=== PATIENT | female | born 2000 | race Caucasian/White ===

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

== ENCOUNTER 2022-06-07 20:07 | Emergency (ER) | payer BC ==
[2022-06-07] VITALS (8 sets, daily range): BP systolic 111–137; BP diastolic 58–85
[~2022-06-07] VITALS: Ht 175.3 cm; Wt 99.4 kg
[~2022-06-07 20:07] MED LIST changes: +FLEXERIL PO
[2022-06-07 20:49] LABS: BASO% 0.4 % (0-3); EOS% 2.8 % (0-8); HEMATOCRIT 40.8 % (37.0-47.0); HEMOGLOBIN 13.2 g/dl (12.0-16.0); IMMATURE GRANULOCYTES 0.3 % (0.0-5.0); MEAN CELL VOLUME 89.1 fL CALC (80.0-100.0); MEAN CORPUSCULAR HGB 28.8 pG CALC (26.0-32.0); MEAN CORPUSCULAR HGB CONC 32.4 g/dL CAL (32.0-36.0); MONO% 4.6 % (2-13); NEUT# 8.78 thou/uL (2.00-7.15); NEUT% 71.9 % (42-76); RED BLOOD COUNT 4.58 mill/uL (4.20-5.60); RED CELL DISTRI WIDTH 13.3 % (11.5-15.5)
[2022-06-07 21:03] LABS: ALBUMIN 4.3 g/dL (3.2-5.0); ALKALINE PHOSPHATASE 57 u/l (38-126); ANION GAP 12 (6-22 (CALC)); BUN 13 mg/dL (7-17); BUN/CREATININE RATIO 13 (12-20 (CALC)); CARBON DIOXIDE 24 mmol/l (22-30); CHLORIDE 106 mmol/l (95-108); GFR FOR AFR.AMER. > 60 ML/MIN (>=60 (CALC)); GFR OTHER RACES > 60 ML/MIN (>=60 (CALC)); LIPASE 64 u/l (23-300); POTASSIUM 3.8 mmol/l (3.5-5.1); SGOT/AST 30 u/l (14-36); SODIUM 139 mmol/l (137-146); TOTAL PROTEIN 7.5 g/dL (6.3-8.2)
[2022-06-07 21:06] LABS: BILIRUBIN, TOTAL 0.1 mg/dL (0.02-1.3)
[2022-06-07] MEDS ORDERED: TRAMADOL HCL50 MG PO (22:14)
== END 2022-06-07 22:23 | disposition home or self-care (01) | DRG 779 ==
LOC: ED 20:07
PROVIDERS: Family Medicine
DX: O03.9 Complete or unspecified spontaneous abortion without complication (principal)

== ENCOUNTER 2022-06-10 09:24 | Emergency (ER) | payer BC ==
[~2022-06-10] VITALS: Ht 175.3 cm; Wt 97.5 kg
[~2022-06-10 09:24] MED LIST changes: +TRAMADOL HCL50 MG PO
[2022-06-10 09:33] VITALS: BP 130/76
[2022-06-10 09:48] LABS: BASO% 0.4 % (0-3); EOS% 3.8 % (0-8); HEMATOCRIT 37.1 % (37.0-47.0); HEMOGLOBIN 11.6 g/dl (12.0-16.0); IMMATURE GRANULOCYTES 0.5 % (0.0-5.0); LYMPH% 27.1 % (15-41); MEAN CORPUSCULAR HGB 27.8 pG CALC (26.0-32.0); MEAN CORPUSCULAR HGB CONC 31.3 g/dL CAL (32.0-36.0); MONO% 6.2 % (2-13); NEUT# 5.71 thou/uL (2.00-7.15); RED BLOOD COUNT 4.17 mill/uL (4.20-5.60); RED CELL DISTRI WIDTH 12.9 % (11.5-15.5)
[2022-06-10 10:00] LABS: ALBUMIN 4.3 g/dL (3.2-5.0); ALKALINE PHOSPHATASE 50 u/l (38-126); ANION GAP 12 (6-22 (CALC)); BUN 13 mg/dL (7-17); BUN/CREATININE RATIO 19 (12-20 (CALC)); CARBON DIOXIDE 25 mmol/l (22-30); CHLORIDE 104 mmol/l (95-108); CREATININE 0.7 mg/dL (0.5-1.0); GFR FOR AFR.AMER. > 60 ML/MIN (>=60 (CALC)); GFR OTHER RACES > 60 ML/MIN (>=60 (CALC)); POTASSIUM 4.5 mmol/l (3.5-5.1); SGOT/AST 31 u/l (14-36); SODIUM 136 mmol/l (137-146); TOTAL PROTEIN 7.2 g/dL (6.3-8.2)
[2022-06-10 10:01] VITALS: BP 123/76
[2022-06-10 10:09] LABS: BILIRUBIN, TOTAL 0.5 mg/dL (0.02-1.3)
[2022-06-10 10:31] VITALS: BP 105/53
[2022-06-10 12:50] VITALS: BP 134/72
[2022-06-10 13:00] VITALS: BP 127/78
[2022-06-10 13:31] VITALS: BP 117/70
== END 2022-06-10 13:45 | disposition home or self-care (01) | DRG 779 ==
LOC: ED 09:24
PROVIDERS: Family Medicine
DX: O03.9 Complete or unspecified spontaneous abortion without complication (principal)
CPT/HCPCS: J2790

== ENCOUNTER 2023-12-24 19:56 | Emergency (ER) | payer OTHER ==
[~2023-12-24] VITALS: Ht 175.3 cm; Wt 102.0 kg
[~2023-12-24 19:56] MED LIST changes: +NAPROXEN500 MG PO
[2023-12-24 20:00] VITALS: BP 150/74
[2023-12-24] MEDS ORDERED: methylPREDNISolone SODIUM SUCC 125 MG/2 ML SDV IV STA (20:04)
[2023-12-24] MEDS ORDERED: SODIUM CHLORIDE 0.9% 1,000 ML IV STA (20:04)
[2023-12-24] MEDS ORDERED: FAMOTIDINE 10MG/ML 2ML SDV IV STA (20:04)
[2023-12-24] MEDS ORDERED: DiphenhydrAMINE HCL 50 MG/ML SDV IV STA (20:04)
[2023-12-24 20:05] VITALS: BP 128/84
[2023-12-24 20:16] VITALS: BP 131/74
[2023-12-24 20:46] VITALS: BP 131/80
[2023-12-24] MEDS ORDERED: PREDNISONE50 MG PO (20:59)
[2023-12-24] MEDS ORDERED: predniSONE 20 MG/TAB PO ONE (21:00)
[2023-12-24 21:07] VITALS: BP 131/80
== END 2023-12-24 21:07 | disposition home or self-care (01) | DRG 923 ==
LOC: ED 19:56
DX: T78.1XXA Other adverse food reactions, not elsewhere classified, initial encounter (principal); L50.0 Allergic urticaria; Z91.013 Allergy to seafood

== ENCOUNTER 2024-06-13 16:01 | Emergency (ER) | payer OTHER ==
[~2024-06-13] VITALS: Ht 175.3 cm; Wt 104.3 kg
[~2024-06-13 16:01] MED LIST changes: +PREDNISONE50 MG PO
[2024-06-13 16:09] VITALS: BP 129/78
[2024-06-13 16:15] VITALS: BP 121/77
[2024-06-13] MEDS ORDERED: KETOROLAC TROMETHAMINE 30 MG/ML SDV IM ONE (16:15)
[2024-06-13] MEDS ORDERED: ORPHENADRINE CITRATE 30 MG/ML AMP IM ONE (16:15)
[2024-06-13] MEDS ORDERED: predniSONE 20 MG/TAB PO ONE (16:15)
[2024-06-13 16:31] VITALS: BP 110/64
[2024-06-13 16:54] LABS: URINE BILIRUBIN - DIPSTICK Negative (NEGATIVE); URINE BLOOD DIPSTICK Moderate (NEGATIVE); URINE GLUCOSE - DIPSTICK Negative (NEGATIVE); URINE KETONE Negative (NEGATIVE); URINE LEUK ESTERASE Negative (NEGATIVE); URINE NITRITE - DIPSTICK Negative (Negative); URINE PH 5.5 (4.5-8.0); URINE PROTEIN - DIPSTICK Negative (NEG-TRACE); URINE SPECIFIC GRAVITY 1.025; URINE UROBILINOGEN - DIPSTICK 0.2 E.U./dL (0.2)
[2024-06-13 17:03] LABS: URINE COLOR Yellow
[2024-06-13 17:04] LABS: URINE BACTERIA RARE hpf; URINE MUCUS FEW hpf (NONE-FEW); URINE SQUAMOUS EPITHELIAL CELL FEW EPI/hpf (0-FEW); URINE WBC 0-2 WBC/hpf (0-5)
[2024-06-13] MEDS ORDERED: METHOCARBAMOL500 MG PO (18:13)
[2024-06-13] MEDS ORDERED: PREDNISONE10 MG PO (18:13)
[2024-06-13] MEDS ORDERED: NAPROXEN500 MG PO (18:13)
[2024-06-13 18:59] VITALS: BP 110/64
== END 2024-06-13 19:05 | disposition home or self-care (01) | DRG 563 ==
LOC: ED 16:01
PROVIDERS: Nurse Practitioner
DX: S29.012A Strain of muscle and tendon of back wall of thorax, initial encounter (principal); M47.814 Spondylosis without myelopathy or radiculopathy, thoracic region; M51.34 Other intervertebral disc degeneration, thoracic region; X50.0XXA Overexertion from strenuous movement or load, initial encounter; Y93.89 Activity, other specified; Z72.0 Tobacco use
CPT/HCPCS: J2360